=== PATIENT | female | born 1975 | race Caucasian/White ===

== ENCOUNTER 2017-03-23 15:21 | Emergency (ER) | payer MEDICAID ==
[2017-03-23 17:13] VITALS: BP 107/69
== END 2017-03-23 18:01 | disposition home or self-care (01) ==
LOC: ED 15:21
DX: S20.212A Contusion of left front wall of thorax, initial encounter (principal); R07.81 Pleurodynia; Z79.1 Long term (current) use of non-steroidal anti-inflammatories (NSAID); W01.0XXA Fall on same level from slipping, tripping and stumbling without subsequent striking against object, initial encounter; Y93.E1 Activity, personal bathing and showering; Y92.002 Bathroom of unspecified non-institutional (private) residence as the place of occurrence of the external cause; Y99.8 Other external cause status

== ENCOUNTER 2017-11-17 10:59 | Emergency (ER) | payer MEDICAID ==
[~2017-11-17] VITALS: Ht 154.9 cm; Wt 63.5 kg
[2017-11-17 11:13] VITALS: BP 129/79; Ht 154.9 cm; Wt 63.5 kg
== END 2017-11-17 14:12 | disposition home or self-care (01) ==
LOC: ED 10:59
DX: S61.552A Open bite of left wrist, initial encounter (principal); W55.01XA Bitten by cat, initial encounter; Y93.89 Activity, other specified; Y92.488 Other paved roadways as the place of occurrence of the external cause; Y99.8 Other external cause status
CPT/HCPCS: 90715; A4570